=== PATIENT | male | born 1935 | race Caucasian/White ===

== ENCOUNTER → 2016-11-26 | Outpatient (REF) | payer MEDICARE, OTHER ==
[~2016-11-26] MED LIST: /WARF5TA; ALLOPUR300 PO; ASP325 PO; ASPEC81 PO; ATENOLO100 PO; AVODART PO; CARD8TAB2; CARDURA PO; CARDURA8 PO; CELEBRE200 PO; CEPH500T PO; CIPR500T19; COLCHI0.6 PO; COUMADIN5 PO; FINA5TAB2 PO; FISH120012 PO; FLOM5CAP PO; FURO20TA2 PO; HYDR25TA6; HYDROD25 PO; LUTE6CAP2 PO; PRAD150C PO; PRIN20TA3; PRINIVIL PO; PROS5TAB; PROSCAR5 PO; RELAFEN PO; TENO100T; TYLENOL ARTHRITIS; VITA50003 PO; ZYLO300T; [UNRECOGNIZED DRUG - CODE] PO; [UNRECOGNIZED DRUG - CODE] PO; [UNRECOGNIZED DRUG - OTHER]
[2016-11-26 18:20] LABS: MEAN CORPUSCULAR HEMOGLOBIN 33.1 pg (27.0-33.0); MEAN CORPUSCULAR VOLUME 100.2 fl (80.0-96.0); RED CELL DISTRIBUTION WIDTH 18.2 % (11.5-14.5); WHITE BLOOD COUNT 7.3 K/mm3 (4.0-10.0)
[2016-11-26 19:23] LABS: ALBUMIN 3.6 GM/DL (3.2-5.2); CALCIUM LEVEL 8.9 MG/DL (8.8-10.2); CREATININE FOR GFR 1.26 MG/DL (0.70-1.30); GLOMERULAR FILTRATION RATE 58.5 (>35); MAGNESIUM LEVEL 2.1 MG/DL (1.8-2.4); PHOSPHORUS LEVEL 2.9 MG/DL (2.5-4.9); POTASSIUM SERUM 4.2 MEQ/L (3.5-5.1)
== END ==
LOC: M LABDRAWC 16:41
PROVIDERS: ATTEND Physician Assistant
DX: I50.32 Chronic diastolic (congestive) heart failure (principal); I48.2 Chronic atrial fibrillation

== ENCOUNTER → 2017-06-07 | Outpatient (REF) | payer MEDICARE, OTHER ==
[~2017-06-07] MED LIST changes: +VITA1CAP40 PO; -VITA50003 PO
[2017-06-07 12:46] LABS: CREATININE FOR GFR 1.33 MG/DL (0.70-1.30); GLOMERULAR FILTRATION RATE 54.8 (>35)
== END ==
LOC: M LABDRAWC 11:21
PROVIDERS: ATTEND Urology
DX: R35.0 Frequency of micturition (principal); R33.9 Retention of urine, unspecified; N19 Unspecified kidney failure

== ENCOUNTER → 2017-06-07 | Outpatient (REF) | payer MEDICARE, OTHER ==
[2017-06-07 11:46] LABS: MEAN CORPUSCULAR HEMOGLOBIN 32.9 pg (27.0-33.0); MEAN CORPUSCULAR VOLUME 99.7 fl (80.0-96.0); RED CELL DISTRIBUTION WIDTH 19.7 % (11.5-14.5); WHITE BLOOD COUNT 6.4 K/mm3 (4.0-10.0)
[2017-06-07 12:14] LABS: ALBUMIN 3.8 GM/DL (3.2-5.2); ALBUMIN/GLOBULIN RATIO 1.19 (1.00-1.93); BILIRUBIN,TOTAL 0.5 MG/DL (0.2-1.0); CALCIUM LEVEL 9.2 MG/DL (8.8-10.2); CREATININE FOR GFR 1.31 MG/DL (0.70-1.30); GLOMERULAR FILTRATION RATE 55.8 (>35); MAGNESIUM LEVEL 2.3 MG/DL (1.8-2.4); POTASSIUM SERUM 4.6 MEQ/L (3.5-5.1)
== END ==
LOC: M LABDRAWC 11:19
PROVIDERS: ATTEND Physician Assistant
DX: I50.32 Chronic diastolic (congestive) heart failure (principal); E78.00 Pure hypercholesterolemia, unspecified; R35.0 Frequency of micturition; R33.9 Retention of urine, unspecified; N19 Unspecified kidney failure

== ENCOUNTER → 2017-11-15 | Outpatient (REF) | payer MEDICARE, OTHER ==
[2017-11-15 12:50] LABS: HEMATOCRIT 46.2 % (42.0-52.0); HEMOGLOBIN 14.7 g/dl (14.0-18.0); MEAN CORPUSCULAR HEMOGLOBIN 31.1 pg (27.0-33.0); MEAN CORPUSCULAR HGB CONC 31.8 g/dl (32.0-36.5); MEAN CORPUSCULAR VOLUME 97.7 fl (80.0-96.0); PLATELET COUNT, AUTOMATED 180 10^3/uL (150-450); RED BLOOD COUNT 4.73 10^6/uL (4.30-6.10); RED CELL DISTRIBUTION WIDTH 15.1 % (11.5-14.5); WHITE BLOOD COUNT 8.8 10^3/uL (4.0-10.0)
[2017-11-15 13:24] LABS: ALBUMIN 3.8 GM/DL (3.2-5.2); ALBUMIN/GLOBULIN RATIO 1.06 (1.00-1.93); ALKALINE PHOSPHATASE 93 U/L (45-117); ALT/SGPT 20 U/L (12-78); ANION GAP 9 MEQ/L (8-16); AST/SGOT 15 U/L (7-37); BILIRUBIN,TOTAL 0.9 MG/DL (0.2-1.0); BLOOD UREA NITROGEN 28 MG/DL (7-18); CALCIUM LEVEL 9.3 MG/DL (8.8-10.2); CARBON DIOXIDE LEVEL 29 MEQ/L (21-32); CHLORIDE LEVEL 106 MEQ/L (98-107); CREATININE FOR GFR 1.32 MG/DL (0.70-1.30); GLOMERULAR FILTRATION RATE 55.3 (>35); GLUCOSE, FASTING 81 MG/DL (70-100); MAGNESIUM LEVEL 2.4 MG/DL (1.8-2.4); POTASSIUM SERUM 4.9 MEQ/L (3.5-5.1); SODIUM LEVEL 144 MEQ/L (136-145); TOTAL PROTEIN 7.4 GM/DL (6.4-8.2)
== END ==
LOC: M LABDRAWC 11:53
DX: I50.32 Chronic diastolic (congestive) heart failure (principal); I48.2 Chronic atrial fibrillation; E78.00 Pure hypercholesterolemia, unspecified
CPT/HCPCS: 83735

== ENCOUNTER → 2018-06-21 | Outpatient (REF) | payer MEDICARE, OTHER ==
[2018-06-21 12:59] LABS: HEMATOCRIT 43.3 % (42.0-52.0); HEMOGLOBIN 14.3 g/dl (13.5-17.5); MEAN CORPUSCULAR HEMOGLOBIN 32.5 pg (27.0-33.0); MEAN CORPUSCULAR VOLUME 98.4 fl (80.0-96.0); PLATELET COUNT, AUTOMATED 169 10^3/uL (150-450); RED CELL DISTRIBUTION WIDTH 15.9 % (11.5-14.5); WHITE BLOOD COUNT 7.8 10^3/uL (4.0-10.0)
[2018-06-21 13:02] LABS: ALBUMIN 3.6 GM/DL (3.2-5.2); ALBUMIN/GLOBULIN RATIO 1.06 (1.00-1.93); ALKALINE PHOSPHATASE 87 U/L (45-117); ALT/SGPT 19 U/L (12-78); ANION GAP 7 MEQ/L (8-16); AST/SGOT 18 U/L (7-37); BILIRUBIN,TOTAL 1.2 MG/DL (0.2-1.0); BLOOD UREA NITROGEN 23 MG/DL (7-18); CALCIUM LEVEL 9.1 MG/DL (8.8-10.2); CARBON DIOXIDE LEVEL 29 MEQ/L (21-32); CHLORIDE LEVEL 106 MEQ/L (98-107); CREATININE FOR GFR 1.27 MG/DL (0.70-1.30); GLOMERULAR FILTRATION RATE 57.7 (>35); GLUCOSE, FASTING 79 MG/DL (70-100); MAGNESIUM LEVEL 2.2 MG/DL (1.8-2.4); POTASSIUM SERUM 4.3 MEQ/L (3.5-5.1); SODIUM LEVEL 142 MEQ/L (136-145)
== END ==
LOC: M LABDRAWC 12:08
DX: I50.32 Chronic diastolic (congestive) heart failure (principal); I48.2 Chronic atrial fibrillation; E78.00 Pure hypercholesterolemia, unspecified
CPT/HCPCS: 83735

== ENCOUNTER → 2019-01-01 | Outpatient (REF) | payer MEDICARE, OTHER ==
[~2019-01-01] MED LIST changes: +FLOM0.4C39 PO; -FLOM5CAP PO; -VITA1CAP40 PO; +VITA50005 PO
[2019-01-01 12:49] LABS: BLOOD UREA NITROGEN 22 MG/DL (7-18); CALCIUM LEVEL 8.8 MG/DL (8.8-10.2); CARBON DIOXIDE LEVEL 28 MEQ/L (21-32); CHLORIDE LEVEL 110 MEQ/L (98-107); CHOLESTEROL LEVEL 138 MG/DL (<200); CHOLESTEROL RISK RATIO 3.729 (<5); GLOMERULAR FILTRATION RATE > 60.0 (>35); GLUCOSE, FASTING 73 MG/DL (70-100); HDL CHOLESTEROL 37 MG/DL (>40); HEMATOCRIT 45.8 % (42.0-52.0); HEMOGLOBIN 14.5 g/dl (13.5-17.5); LDL CHOLESTEROL 80 MG/DL (<100); MAGNESIUM LEVEL 2.1 MG/DL (1.8-2.4); MEAN CORPUSCULAR HEMOGLOBIN 32.1 pg (27.0-33.0); MEAN CORPUSCULAR HGB CONC 31.7 g/dl (32.0-36.5); MEAN CORPUSCULAR VOLUME 101.3 fl (80.0-96.0); NON-HDL-C 101 MG/DL; PLATELET COUNT, AUTOMATED 160 10^3/uL (150-450); POTASSIUM SERUM 4.6 MEQ/L (3.5-5.1); RED BLOOD COUNT 4.52 10^6/uL (4.30-6.10); SODIUM LEVEL 144 MEQ/L (136-145); TRIGLYCERIDES LEVEL 107 MG/DL (<150); WHITE BLOOD COUNT 9.2 10^3/uL (4.0-10.0)
== END ==
LOC: M LABDRAWC 11:35
PROVIDERS: ATTEND Physician Assistant
DX: I48.2 Chronic atrial fibrillation (principal); I50.32 Chronic diastolic (congestive) heart failure; E78.00 Pure hypercholesterolemia, unspecified

== ENCOUNTER → 2019-07-02 | Outpatient (REF) | payer MEDICARE, OTHER ==
[~2019-07-02] MED LIST changes: -/WARF5TA; +COUM1TAB17; -PRAD150C PO; +PRAD150C6 PO
[2019-07-02 13:16] LABS: CALCIUM LEVEL 9.5 MG/DL (8.8-10.2); CREATININE FOR GFR 1.25 MG/DL (0.70-1.30); GLOMERULAR FILTRATION RATE 58.6 (>35); MAGNESIUM LEVEL 2.3 MG/DL (1.8-2.4); POTASSIUM SERUM 4.9 MEQ/L (3.5-5.1)
[2019-07-02 13:26] LABS: HEMATOCRIT 40.9 % (42.0-52.0); HEMOGLOBIN 13.1 g/dl (13.5-17.5); MEAN CORPUSCULAR HEMOGLOBIN 32.8 pg (27.0-33.0); MEAN CORPUSCULAR VOLUME 102.5 fl (80.0-96.0); PLATELET COUNT, AUTOMATED 182 10^3/uL (150-450); RED BLOOD COUNT 3.99 10^6/uL (4.30-6.10); WHITE BLOOD COUNT 8.8 10^3/uL (4.0-10.0)
== END ==
LOC: M LABDRAWC 11:19
PROVIDERS: ATTEND Family Medicine
DX: I48.2 Chronic atrial fibrillation (principal); I50.32 Chronic diastolic (congestive) heart failure

== ENCOUNTER → 2019-12-14 | Outpatient (REF) | payer MEDICARE, OTHER ==
[2019-12-14 12:15] LABS: BLOOD UREA NITROGEN 26 MG/DL (7-18); CALCIUM LEVEL 9.4 MG/DL (8.8-10.2); CARBON DIOXIDE LEVEL 27 MEQ/L (21-32); CHLORIDE LEVEL 110 MEQ/L (98-107); CREATININE FOR GFR 1.21 MG/DL (0.70-1.30); GLOMERULAR FILTRATION RATE > 60.0 (>35); GLUCOSE, FASTING 80 MG/DL (70-100); MAGNESIUM LEVEL 2.3 MG/DL (1.8-2.4); POTASSIUM SERUM 4.7 MEQ/L (3.5-5.1); SODIUM LEVEL 142 MEQ/L (136-145)
[2019-12-14 12:16] LABS: HEMATOCRIT 44.6 % (42.0-52.0); HEMOGLOBIN 14.2 g/dl (13.5-17.5); MEAN CORPUSCULAR HEMOGLOBIN 32.1 pg (27.0-33.0); MEAN CORPUSCULAR HGB CONC 31.8 g/dl (32.0-36.5); MEAN CORPUSCULAR VOLUME 100.9 fl (80.0-96.0); PLATELET COUNT, AUTOMATED 192 10^3/uL (150-450); RED BLOOD COUNT 4.42 10^6/uL (4.30-6.10); WHITE BLOOD COUNT 7.4 10^3/uL (4.0-10.0)
== END ==
LOC: M LAB REF 11:31 → M LABDRAW1 11:31
PROVIDERS: ATTEND Physician Assistant
DX: I48.20 Chronic atrial fibrillation, unspecified (principal); I50.32 Chronic diastolic (congestive) heart failure

== ENCOUNTER → 2020-06-12 | Outpatient (REF) | payer MEDICARE, BC, OTHER ==
[2020-06-12 15:39] LABS: ALBUMIN 3.9 GM/DL (3.2-5.2); ALT/SGPT 16 U/L (12-78); BILIRUBIN,TOTAL 0.8 MG/DL (0.2-1.0); BLOOD UREA NITROGEN 21 MG/DL (7-18); CALCIUM LEVEL 9.7 MG/DL (8.8-10.2); CARBON DIOXIDE LEVEL 28 MEQ/L (21-32); CHLORIDE LEVEL 113 MEQ/L (98-107); CHOLESTEROL LEVEL 139 MG/DL (<200); CHOLESTEROL RISK RATIO 3.309 (<5); CREATININE FOR GFR 1.16 MG/DL (0.70-1.30); GLOMERULAR FILTRATION RATE > 60.0 (>35); GLUCOSE, FASTING 89 MG/DL (70-100); HDL CHOLESTEROL 42 MG/DL (>40); LDL CHOLESTEROL 80 MG/DL (<100); MAGNESIUM LEVEL 2.1 MG/DL (1.8-2.4); NON-HDL-C 97 MG/DL; POTASSIUM SERUM 4.1 MEQ/L (3.5-5.1); SODIUM LEVEL 143 MEQ/L (136-145); TRIGLYCERIDES LEVEL 84 MG/DL (<150)
[2020-06-12 16:01] LABS: HEMATOCRIT 38.7 % (42.0-52.0); HEMOGLOBIN 12.4 g/dl (13.5-17.5); MEAN CORPUSCULAR HEMOGLOBIN 32.6 pg (27.0-33.0); MEAN CORPUSCULAR VOLUME 101.8 fl (80.0-96.0); PLATELET COUNT, AUTOMATED 181 10^3/uL (150-450); WHITE BLOOD COUNT 9.1 10^3/uL (4.0-10.0)
== END ==
LOC: M LABDRAWC 13:07
PROVIDERS: ATTEND Physician Assistant
DX: I50.32 Chronic diastolic (congestive) heart failure (principal); I48.21 Permanent atrial fibrillation; E78.00 Pure hypercholesterolemia, unspecified; R97.20 Elevated prostate specific antigen [PSA]
CPT/HCPCS: 36415; 80053; 80061; 83735; 84132; 84153; 85027; G0463

== ENCOUNTER → 2020-06-12 | Outpatient (REF) | payer MEDICARE, OTHER ==
[2020-06-12 15:53] LABS: CHLORIDE LEVEL 111 MEQ/L (98-107); CREATININE FOR GFR 1.15 MG/DL (0.70-1.30); GLOMERULAR FILTRATION RATE > 60.0 (>35); POTASSIUM SERUM 4.2 MEQ/L (3.5-5.1); PROSTATIC SPECIFIC AG MONITOR 3.95 NG/ML (< 4.00); SODIUM LEVEL 144 MEQ/L (136-145)
== END ==
LOC: M LABDRAWC 13:11
PROVIDERS: ATTEND Urology
DX: R39.12 Poor urinary stream (principal)

== ENCOUNTER → 2020-12-23 | Outpatient (REF) | payer MEDICARE, OTHER ==
[2020-12-23 12:25] LABS: CALCIUM LEVEL 9.2 MG/DL (8.8-10.2); CREATININE FOR GFR 1.44 MG/DL (0.70-1.30); GLOMERULAR FILTRATION RATE 49.5 (>35); POTASSIUM SERUM 4.1 MEQ/L (3.5-5.1)
[2020-12-23 12:41] LABS: HEMATOCRIT 44.8 % (42.0-52.0); HEMOGLOBIN 14.1 g/dl (13.5-17.5); MEAN CORPUSCULAR HEMOGLOBIN 32.3 pg (27.0-33.0); MEAN CORPUSCULAR HGB CONC 31.5 g/dl (32.0-36.5); MEAN CORPUSCULAR VOLUME 102.8 fl (80.0-96.0); PLATELET COUNT, AUTOMATED 153 10^3/uL (150-450); RED BLOOD COUNT 4.36 10^6/uL (4.30-6.10); WHITE BLOOD COUNT 7.5 10^3/uL (4.0-10.0)
== END ==
LOC: M LABDRAWC 11:17
PROVIDERS: ATTEND Physician Assistant
DX: I48.21 Permanent atrial fibrillation (principal); I50.32 Chronic diastolic (congestive) heart failure

== ENCOUNTER → 2021-01-13 | Outpatient (REF) | payer MEDICARE, OTHER ==
[2021-01-13 12:03] LABS: CALCIUM LEVEL 9.6 MG/DL (8.8-10.2); CREATININE FOR GFR 1.33 MG/DL (0.70-1.30); GLOMERULAR FILTRATION RATE 54.3 (>35); POTASSIUM SERUM 4.3 MEQ/L (3.5-5.1)
== END ==
LOC: M LABDRAWC 11:03
PROVIDERS: ATTEND Physician Assistant
DX: I50.32 Chronic diastolic (congestive) heart failure (principal)

== ENCOUNTER → 2021-07-20 | Outpatient (REF) | payer MEDICARE, OTHER ==
[2021-07-20 11:42] LABS: HEMATOCRIT 46.5 % (42.0-52.0); MEAN CORPUSCULAR HEMOGLOBIN 33.1 pg (27.0-33.0); MEAN CORPUSCULAR HGB CONC 32.3 g/dl (32.0-36.5); MEAN CORPUSCULAR VOLUME 102.6 fl (80.0-96.0); PLATELET COUNT, AUTOMATED 203 10^3/uL (150-450); RED BLOOD COUNT 4.53 10^6/uL (4.30-6.10); WHITE BLOOD COUNT 9.4 10^3/uL (4.0-10.0)
[2021-07-20 12:33] LABS: CALCIUM LEVEL 9.7 MG/DL (8.8-10.2); CREATININE FOR GFR 1.29 MG/DL (0.70-1.30); GLOMERULAR FILTRATION RATE 56.2 (>35); MAGNESIUM LEVEL 2.2 MG/DL (1.8-2.4); POTASSIUM SERUM 4.7 MEQ/L (3.5-5.1)
== END ==
LOC: M LABDRAWC 11:06
PROVIDERS: ATTEND Physician Assistant
DX: I50.32 Chronic diastolic (congestive) heart failure (principal); I48.21 Permanent atrial fibrillation

== ENCOUNTER → 2021-07-20 | Outpatient (REF) | payer MEDICARE, OTHER ==
[2021-07-20 12:29] LABS: CREATININE FOR GFR 1.33 MG/DL (0.70-1.30); GLOMERULAR FILTRATION RATE 54.3 (>35); POTASSIUM SERUM 4.6 MEQ/L (3.5-5.1); PROSTATIC SPECIFIC AG MONITOR 3.36 NG/ML (< 4.00)
== END ==
LOC: M LABDRAWC 11:08
PROVIDERS: ATTEND Urology
DX: R97.20 Elevated prostate specific antigen [PSA] (principal); R33.9 Retention of urine, unspecified

== ENCOUNTER 2021-12-28 09:55 | Inpatient (IN) | payer MEDICARE, OTHER, BC ==
[2021-12-28] VITALS (13 sets, daily range): BP systolic 81–121; BP diastolic 52–98
[~2021-12-28] VITALS: Ht 180.3 cm; Wt 144.0 kg
[2021-12-28] MEDS ORDERED: LIDOCAINE 2% 5ML JELLY UROJET TOP ONE (10:45)
[2021-12-28 10:52] LABS: BASO % 0.4 % (0.0-1.0); EOS # 0.1 10^3/uL (0.0-0.5); EOS % 1.6 % (0.0-3.0); HEMATOCRIT 36.4 % (42.0-52.0); LYMPH # 1.2 10^3/uL (1.5-5.0); LYMPH % 14.8 % (24.0-44.0); MEAN CORPUSCULAR HEMOGLOBIN 36.9 pg (27.0-33.0); MEAN CORPUSCULAR HGB CONC 35.7 g/dl (32.0-36.5); MEAN CORPUSCULAR VOLUME 103.4 fl (80.0-96.0); MONO # 0.5 10^3/uL (0.0-0.8); MONO % 6.4 % (2.0-8.0); NEUTROPHILS # 6.2 10^3/uL (1.5-8.5); NEUTROPHILS % 75.8 % (36.0-66.0); RED BLOOD COUNT 3.52 10^6/uL (4.30-6.10); WHITE BLOOD COUNT 8.2 10^3/uL (4.0-10.0)
[2021-12-28 11:00] LABS: INR 1.83; PROTHROMBIN TIME 21.6 SECONDS (12.7-14.5)
[2021-12-28 11:01] LABS: PARTIAL THROMBOPLASTIN TIME 53.6 SECONDS (25.9-37.0)
[2021-12-28 11:10] LABS: PLATELET COUNT, AUTOMATED 90 10^3/uL (150-450)
[2021-12-28 11:22] LABS: BILIRUBIN,DIRECT 0.4 MG/DL (0.0-0.2); BILIRUBIN,TOTAL 0.8 MG/DL (0.2-1.0)
[2021-12-28 11:25] LABS: CK-MB VALUE MASS 8.9 NG/ML (<3.6); MB/CK RELATIVE INDEX 4.54 (< OR =4)
[2021-12-28 13:10] LABS: RSV AMPLIFICATION NEGATIVE (NEGATIVE)
[2021-12-28] MEDS ORDERED: NS 1,000 ML IV ONE ×3 (15:30→18:40)
[2021-12-28 15:35] LABS: BILIRUBIN, URINE MANUAL OBSCURED (NEGATIVE); GLUCOSE, URINE (UA) MANUAL NEGATIVE (NEGATIVE); KETONE, URINE MANUAL OBSCURED mg/dL (NEGATIVE); UROBILINOGEN, URINE MANUAL OBSCURED mg/dl (NORMAL)
[2021-12-28 15:45] LABS: BACTERIA, URINE NONE SEEN; HYALINE CAST, URINE NONE SEEN /lpf (0-1); RBC, URINE TNTC /hpf (0-3); SQUAMOUS EPITHELIAL CELL URINE NONE SEEN /hpf (SMALL AMT)
[2021-12-28] MEDS ORDERED: TAMS1CAP17 PO (15:53)
[2021-12-28] MEDS ORDERED: ALLO300T2 PO (15:53)
[2021-12-28] MEDS ORDERED: ELIQ5TAB PO (15:53)
[2021-12-28] MEDS ORDERED: METO1TAB33 PO (15:53)
[2021-12-28] MEDS ORDERED: LISI20TA33 PO (15:53)
[2021-12-28] MEDS ORDERED: POTA8CAP10 PO (15:53)
[2021-12-28 15:56] LABS: C REACTIVE PROTEIN QUANTITATIV 1.62 MG/DL (0.00-0.30)
[2021-12-28] MEDS ORDERED: NS 1,000 ML IV SCH (16:30)
[2021-12-28] MEDS ORDERED: OMEG10002 PO (16:31)
[2021-12-28] MEDS ORDERED: VITA100093 PO (16:31)
[2021-12-28] MEDS ORDERED: HOME MED LIST COMPLETE! XX SCH (16:35)
[2021-12-28] MEDS: LACTOBACILLUS ACIDOPHILUS CAP (BACID) PO SCH ×3 (18:00→21:59)
[2021-12-28] MEDS ORDERED: cefTRIAXone SOD 1 GM in D5W MINI-BAG PLUS 50 ML IV SCH (18:00)
[2021-12-28] MEDS ORDERED: VANCOMYCIN HCL 1,000 MG, VIAL MATE ADAPTER 1 EACH in NS 250 ML IV SCH (18:40)
[2021-12-28] MEDS ORDERED: HYDROCORTISONE 100 MG/2 ML VIAL (J1720 PER 1) IV SCH (19:00)
[2021-12-28] MEDS: NOREPINEPHRINE BITARTRATE 8 MG in D5W 492 ML IV SCH ×2 (19:00→22:38)
[2021-12-28] MEDS ORDERED: GLUCOSE 4GM CHEW TABLET PO PRN (19:05)
[2021-12-28] MEDS ORDERED: DEXTROSE 50% 50 ML SYRINGE IV PRN (19:05)
[2021-12-28] MEDS ORDERED: GLUCAGON INJ 1MG VIAL SC PRN (19:05)
[2021-12-28 19:38] LABS: BASO % 0.4 % (0.0-1.0); EOS # 0.1 10^3/uL (0.0-0.5); HEMOGLOBIN 11.7 g/dl (13.5-17.5); LYMPH # 1.1 10^3/uL (1.5-5.0); LYMPH % 13.2 % (24.0-44.0); MEAN CORPUSCULAR HEMOGLOBIN 36.4 pg (27.0-33.0); MEAN CORPUSCULAR HGB CONC 35.5 g/dl (32.0-36.5); MEAN CORPUSCULAR VOLUME 102.8 fl (80.0-96.0); MONO # 0.5 10^3/uL (0.0-0.8); MONO % 6.3 % (2.0-8.0); NEUTROPHILS # 6.6 10^3/uL (1.5-8.5); NEUTROPHILS % 77.7 % (36.0-66.0); RED BLOOD COUNT 3.21 10^6/uL (4.30-6.10); WHITE BLOOD COUNT 8.4 10^3/uL (4.0-10.0)
[2021-12-28 19:39] LABS: PLATELET COUNT, AUTOMATED 79 10^3/uL (150-450)
[2021-12-28 19:49] LABS: INR 1.88
[2021-12-28 19:50] LABS: PARTIAL THROMBOPLASTIN TIME 50.9 SECONDS (25.9-37.0)
[2021-12-28] MEDS ORDERED: PROTHROMBIN COMPLEX CONCEN IV ONE (20:00)
[2021-12-28 20:04] LABS: CK-MB VALUE MASS 6.4 NG/ML (<3.6); MB/CK RELATIVE INDEX 4.32 (< OR =4)
[2021-12-28 20:12] LABS: ERYTHROCYTE SEDIMENTATION RATE 22 mm/hr (0-20)
[2021-12-28] MEDS: NYSTATIN 100,000 UNITS/GM TOPICAL PWD 15 GM TOP SCH (21:00)
[2021-12-28 21:10] LABS: BILIRUBIN,TOTAL 0.5 MG/DL (0.2-1.0); CALCIUM LEVEL 6.9 MG/DL (8.8-10.2); CREATININE FOR GFR 1.75 MG/DL (0.70-1.30); GLOMERULAR FILTRATION RATE 39.4 (>35); POTASSIUM SERUM 4.3 MEQ/L (3.5-5.1); THYROID STIMULATING HORMONE 10.4 uIU/ML (0.358-3.740); TOTAL PROTEIN 4.4 GM/DL (6.4-8.2)
[2021-12-28] MEDS: PIPERACILLIN/TAZOBACTAM SOD 3.375 GM in D5W MINI-BAG PLUS 50 ML IV SCH (21:16)
[2021-12-28] MEDS: TAMSULOSIN 0.4 MG CAP PO SCH (21:18)
[2021-12-28 22:00] LABS: CALCIUM LEVEL 8.6 MG/DL (8.8-10.2); CREATININE FOR GFR 2.2 MG/DL (0.70-1.30); GLOMERULAR FILTRATION RATE 30.3 (>35); POTASSIUM SERUM 4.8 MEQ/L (3.5-5.1)
[2021-12-28] MEDS: NS 1,000 ML IV SCH (22:29)
[2021-12-28] MEDS: HYDROCORTISONE 100 MG/2 ML VIAL (J1720 PER 1) IV SCH (22:30)
[2021-12-28] MEDS ORDERED: VANCOMYCIN HCL 1,000 MG, VIAL MATE ADAPTER 1 EACH in NS 250 ML IV ONE (23:00)
[2021-12-29] VITALS (56 sets, daily range): BP systolic 83–120; BP diastolic 50–65
[2021-12-29] MEDS ORDERED: VANCOMYCIN HCL 1,000 MG, VIAL MATE ADAPTER 1 EACH in NS 250 ML IV ONE ×3
[2021-12-29 00:50] LABS: CK-MB VALUE MASS 8.3 NG/ML (<3.6); MB/CK RELATIVE INDEX 5.32 (< OR =4)
[2021-12-29 00:55] LABS: BASO % 0.3 % (0.0-1.0); EOS # 0.1 10^3/uL (0.0-0.5); EOS % 0.9 % (0.0-3.0); HEMATOCRIT 33.5 % (42.0-52.0); HEMOGLOBIN 10.9 g/dl (13.5-17.5); LYMPH % 10.2 % (24.0-44.0); MEAN CORPUSCULAR HEMOGLOBIN 32.3 pg (27.0-33.0); MEAN CORPUSCULAR VOLUME 99.4 fl (80.0-96.0); MONO # 0.6 10^3/uL (0.0-0.8); MONO % 5.5 % (2.0-8.0); NEUTROPHILS # 8.3 10^3/uL (1.5-8.5); NEUTROPHILS % 82.1 % (36.0-66.0); PLATELET COUNT, AUTOMATED 79 10^3/uL (150-450); RED BLOOD COUNT 3.37 10^6/uL (4.30-6.10); WHITE BLOOD COUNT 10.1 10^3/uL (4.0-10.0)
[2021-12-29 00:56] LABS: MEAN CORPUSCULAR HGB CONC 32.5 g/dl (32.0-36.5)
[2021-12-29] MEDS: PIPERACILLIN/TAZOBACTAM SOD 3.375 GM in D5W MINI-BAG PLUS 50 ML IV SCH ×4 (04:23→21:03)
[2021-12-29] MEDS: NS 1,000 ML IV SCH (04:23)
[2021-12-29] MEDS: HYDROCORTISONE 100 MG/2 ML VIAL (J1720 PER 1) IV SCH (04:23)
[2021-12-29 05:16] LABS: HEMATOCRIT 34.1 % (42.0-52.0); HEMOGLOBIN 11.4 g/dl (13.5-17.5); MEAN CORPUSCULAR HEMOGLOBIN 34.2 pg (27.0-33.0); MEAN CORPUSCULAR HGB CONC 33.4 g/dl (32.0-36.5); MEAN CORPUSCULAR VOLUME 102.4 fl (80.0-96.0); PLATELET COUNT, AUTOMATED 86 10^3/uL (150-450); RED BLOOD COUNT 3.33 10^6/uL (4.30-6.10); WHITE BLOOD COUNT 11.6 10^3/uL (4.0-10.0)
[2021-12-29 05:40] LABS: CK-MB VALUE MASS 7.1 NG/ML (<3.6)
[2021-12-29 05:48] LABS: CALCIUM LEVEL 8.5 MG/DL (8.8-10.2); CREATININE FOR GFR 2.26 MG/DL (0.70-1.30); GLOMERULAR FILTRATION RATE 29.4 (>35); POTASSIUM SERUM 5.1 MEQ/L (3.5-5.1)
[2021-12-29] MEDS: D5W/0.45% SODIUM CHLORIDE 1,000 ML IV SCH ×2 (07:30→17:29)
[2021-12-29] MEDS ORDERED: MIDODRINE 5 MG TAB PO SCH (08:00)
[2021-12-29] MEDS ORDERED: VANCOMYCIN HCL 750 MG, VIAL MATE ADAPTER 1 EACH in NS 250 ML IV SCH ×2 (08:00→09:00)
[2021-12-29] MEDS: FINASTERIDE 5 MG TAB PO SCH (08:20)
[2021-12-29] MEDS: allopurinoL 300 MG TAB PO SCH (08:20)
[2021-12-29] MEDS: LACTOBACILLUS ACIDOPHILUS CAP (BACID) PO SCH ×4 (08:20→20:51)
[2021-12-29] MEDS ORDERED: PANTOPRAZOLE 40MG TAB (PROTONIX) PO SCH (09:00)
[2021-12-29] MEDS: NYSTATIN 100,000 UNITS/GM TOPICAL PWD 15 GM TOP SCH ×2 (09:00→21:02)
[2021-12-29] MEDS ORDERED: VITAMIN D 1,000 INTERNATIONAL UNITS TABLET PO SCH (09:00)
[2021-12-29] MEDS ORDERED: OMEGA-3 1000MG CAPSULE PO SCH (09:00)
[2021-12-29] MEDS: VANCOMYCIN HCL 750 MG, VIAL MATE ADAPTER 1 EACH in NS 250 ML IV SCH (10:30)
[2021-12-29] MEDS: VANCOMYCIN HCL 500 MG in D5W MINI-BAG PLUS 100 ML IV SCH (12:42)
[2021-12-29 13:23] LABS: CALCIUM LEVEL 8.3 MG/DL (8.8-10.2); CREATININE FOR GFR 2.21 MG/DL (0.70-1.30); GLOMERULAR FILTRATION RATE 30.1 (>35); POTASSIUM SERUM 4.7 MEQ/L (3.5-5.1)
[2021-12-29 13:25] LABS: CK-MB VALUE MASS 7.1 NG/ML (<3.6); MB/CK RELATIVE INDEX 4.64 (< OR =4)
[2021-12-29] MEDS: TAMSULOSIN 0.4 MG CAP PO SCH (20:51)
[2021-12-29] MEDS ORDERED: RAMELTEON 8 MG TAB (ROZEREM) PO ONE (21:00)
[2021-12-29] MEDS: NOREPINEPHRINE BITARTRATE 8 MG in D5W 492 ML IV SCH (22:38)
[2021-12-30] VITALS (64 sets, daily range): BP systolic 77–145; BP diastolic 41–77
[2021-12-30] MEDS: D5W/0.45% SODIUM CHLORIDE 1,000 ML IV SCH ×3 (00:28→20:58)
[2021-12-30] MEDS: PIPERACILLIN/TAZOBACTAM SOD 3.375 GM in D5W MINI-BAG PLUS 50 ML IV SCH ×4 (03:49→21:56)
[2021-12-30 05:32] LABS: HEMATOCRIT 31.6 % (42.0-52.0); HEMOGLOBIN 10.9 g/dl (13.5-17.5); MEAN CORPUSCULAR HEMOGLOBIN 35.6 pg (27.0-33.0); MEAN CORPUSCULAR HGB CONC 34.5 g/dl (32.0-36.5); MEAN CORPUSCULAR VOLUME 103.3 fl (80.0-96.0); RED BLOOD COUNT 3.06 10^6/uL (4.30-6.10); WHITE BLOOD COUNT 16.8 10^3/uL (4.0-10.0)
[2021-12-30 05:33] LABS: PLATELET COUNT, AUTOMATED 79 10^3/uL (150-450)
[2021-12-30 05:44] LABS: CALCIUM LEVEL 8.3 MG/DL (8.8-10.2); CREATININE FOR GFR 2.07 MG/DL (0.70-1.30); GLOMERULAR FILTRATION RATE 32.5 (>35); POTASSIUM SERUM 4.4 MEQ/L (3.5-5.1)
[2021-12-30] MEDS: LACTOBACILLUS ACIDOPHILUS CAP (BACID) PO SCH ×4 (08:51→20:36)
[2021-12-30] MEDS: FINASTERIDE 5 MG TAB PO SCH (08:51)
[2021-12-30] MEDS: allopurinoL 300 MG TAB PO SCH (08:52)
[2021-12-30] MEDS: VANCOMYCIN HCL 750 MG, VIAL MATE ADAPTER 1 EACH in NS 250 ML IV SCH (10:54)
[2021-12-30] MEDS: VANCOMYCIN HCL 500 MG in D5W MINI-BAG PLUS 100 ML IV SCH (12:35)
[2021-12-30] MEDS: MIDODRINE 5 MG TAB PO SCH ×2 (12:35→16:12)
[2021-12-30] MEDS: NYSTATIN 100,000 UNITS/GM TOPICAL PWD 15 GM TOP SCH ×2 (12:37→20:36)
[2021-12-30 12:55] LABS: ALBUMIN 2.5 GM/DL (3.2-5.2); BILIRUBIN,DIRECT 0.4 MG/DL (0.0-0.2); BILIRUBIN,TOTAL 0.6 MG/DL (0.2-1.0); CORTISOL AM 16.1 UG/DL (4.3-22.4); MAGNESIUM LEVEL 2.2 MG/DL (1.8-2.4); PHOSPHORUS LEVEL 3.2 MG/DL (2.5-4.9); TOTAL PROTEIN 5.2 GM/DL (6.4-8.2)
[2021-12-30] MEDS: HYDROCORTISONE 100 MG/2 ML VIAL (J1720 PER 1) IV SCH ×2 (12:57→18:32)
[2021-12-30 13:01] LABS: VENOUS BASE EXCESS -5.5 (-2.0-2.0); VENOUS HCO3 18.4 MEQ/L (23.0-27.0); VENOUS PARTIAL PRESSURE CO2 31.3 mmHg (38.0-50.0); VENOUS PARTIAL PRESSURE O2 149.2 mmHg (30.0-50.0); VENOUS PH 7.388 UNITS (7.330-7.430); VENOUS TOTAL CO2 19.4 MEQ/L (24.0-28.0)
[2021-12-30] MEDS: NOREPINEPHRINE BITARTRATE 8 MG in D5W 492 ML IV SCH (16:15)
[2021-12-30] MEDS ORDERED: NS 500 ML IV ONE (17:55)
[2021-12-31] VITALS (64 sets, daily range): BP systolic 79–127; BP diastolic 41–75
[2021-12-31] MEDS: D5W/0.45% SODIUM CHLORIDE 1,000 ML IV SCH ×2 (00:58→07:00)
[2021-12-31] MEDS: HYDROCORTISONE 100 MG/2 ML VIAL (J1720 PER 1) IV SCH ×3 (02:03→12:13)
[2021-12-31] MEDS: NOREPINEPHRINE BITARTRATE 8 MG in D5W 492 ML IV SCH ×2 (03:00→09:05)
[2021-12-31] MEDS: PIPERACILLIN/TAZOBACTAM SOD 3.375 GM in D5W MINI-BAG PLUS 50 ML IV SCH ×2 (04:02→09:04)
[2021-12-31 05:28] LABS: CREATININE FOR GFR 1.94 MG/DL (0.70-1.30); HEMATOCRIT 35.6 % (42.0-52.0); HEMOGLOBIN 12.1 g/dl (13.5-17.5); MEAN CORPUSCULAR VOLUME 96.7 fl (80.0-96.0); RED BLOOD COUNT 3.68 10^6/uL (4.30-6.10); WHITE BLOOD COUNT 18.3 10^3/uL (4.0-10.0)
[2021-12-31 05:29] LABS: PLATELET COUNT, AUTOMATED 98 10^3/uL (150-450)
[2021-12-31 05:30] LABS: MEAN CORPUSCULAR HEMOGLOBIN 32.9 pg (27.0-33.0)
[2021-12-31] MEDS ORDERED: NS 500 ML IV ONE (06:25)
[2021-12-31 09:00] LABS: VENOUS BASE EXCESS -5.5 (-2.0-2.0); VENOUS HCO3 17.7 MEQ/L (23.0-27.0); VENOUS PARTIAL PRESSURE O2 97.1 mmHg (30.0-50.0); VENOUS PH 7.418 UNITS (7.330-7.430); VENOUS TOTAL CO2 18.5 MEQ/L (24.0-28.0)
[2021-12-31] MEDS ORDERED: LEVOTHYROXINE 100MCG (0.1MG) VIAL (POWDER FORM) IV SCH (09:00)
[2021-12-31] MEDS: MIDODRINE 5 MG TAB PO SCH (09:04)
[2021-12-31] MEDS: FINASTERIDE 5 MG TAB PO SCH (09:04)
[2021-12-31] MEDS: allopurinoL 300 MG TAB PO SCH (09:04)
[2021-12-31] MEDS: LACTOBACILLUS ACIDOPHILUS CAP (BACID) PO SCH ×3 (09:04→12:30)
[2021-12-31] MEDS: NYSTATIN 100,000 UNITS/GM TOPICAL PWD 15 GM TOP SCH (09:05)
[2021-12-31] MEDS ORDERED: DOBUTamine HCL 500,000 MCG in IV 1 EA IV SCH (12:35)
[2021-12-31] MEDS ORDERED: OLANZapine INTRAMUSCULAR 10MG VIAL IM ONE (13:00)
[2021-12-31] MEDS ORDERED: FUROSEMIDE injection 250 MG in D5W 225 ML IV SCH (14:00)
[2021-12-31] MEDS ORDERED: SCOPOLAMINE 1MG TRANSDERMAL PATCH TOP PRN (15:05)
[2021-12-31] MEDS ORDERED: ONDANSETRON 4MG/2ML VIAL IV PRN (15:05)
[2021-12-31] MEDS: LORazepam 2 MG/ML VIAL IV PRN ×2 (15:23→19:10)
[2021-12-31] MEDS: MORPHINE 4 MG/ML 1ML VIAL/SYRINGE (J2270) IV PRN ×3 (15:24→19:30)
[2022-01-01] MEDS: LORazepam 2 MG/ML VIAL IV PRN (08:26)
[2022-01-01] MEDS: MORPHINE 4 MG/ML 1ML VIAL/SYRINGE (J2270) IV PRN (14:46)
== END 2022-01-01 18:00 | disposition expired | DRG 291 ==
LOC: M ED 09:55 → EDBD 09:55 → M ED INP 18:25 → ENRESERV 18:40 → M ICU 18:50 → M MS5PR 12-31 21:36
PROVIDERS: ADMIT General Practice; ATTEND Internal Medicine
DX: I50.810 Right heart failure, unspecified (principal); G93.41 Metabolic encephalopathy; I48.20 Chronic atrial fibrillation, unspecified; N17.9 Acute kidney failure, unspecified; Z68.41 Body mass index [BMI] 40.0-44.9, adult; D68.32 Hemorrhagic disorder due to extrinsic circulating anticoagulants; E87.2 Acidosis; J98.11 Atelectasis; R57.0 Cardiogenic shock; I11.0 Hypertensive heart disease with heart failure; R33.9 Retention of urine, unspecified; R31.0 Gross hematuria; G47.33 Obstructive sleep apnea (adult) (pediatric); N13.9 Obstructive and reflux uropathy, unspecified; M10.9 Gout, unspecified; Z79.01 Long term (current) use of anticoagulants; E66.9 Obesity, unspecified; D69.6 Thrombocytopenia, unspecified; I27.81 Cor pulmonale (chronic); I27.20 Pulmonary hypertension, unspecified; R68.0 Hypothermia, not associated with low environmental temperature; C44.319 Basal cell carcinoma of skin of other parts of face; N30.81 Other cystitis with hematuria; Z51.5 Encounter for palliative care; Z66 Do not resuscitate; Z79.899 Other long term (current) drug therapy; Z95.0 Presence of cardiac pacemaker; Z96.641 Presence of right artificial hip joint; Z87.891 Personal history of nicotine dependence